=== PATIENT | male | born 1965 | race Caucasian/White ===

== ENCOUNTER 2016-05-16 07:58 | Emergency (ER) | payer OTHER ==
[~2016-05-16] VITALS: Ht 182.9 cm; Wt 74.1 kg
[2016-05-16 08:38] LABS: EOSINOPHIL (%) 0.1 % (0-5); HEMATOCRIT 44.7 % (38.0-50.0); IMMATURE GRANULOCYTE (%) 0.2 % (0.0-0.7); IMMATURE GRANULOCYTE COUNT 0.2 K/uL; MCH 31.4 PG (29.0-34.0); MCHC 35.1 G/DL (30.0-36.0); MCV 89.4 FL (86-99); MEAN PLAT.VOLUME 10.3 uM^3 (9.0-12.4); MONOCYTE (%) 5.1 % (3-12); MONOCYTE COUNT 0.5 K/uL (0-0.8); NEUTROPHIL (%) 84.6 % (45-76); NEUTROPHIL COUNT 8.6 K/uL (1.8-6.4); PLATELET COUNT 191 K/uL (156-360); RBC DIS.WIDTH-CV 13.1 % (11.8-14.6); RBC DIS.WIDTH-SD 42.3 % (39-53); WHITE BLOOD COUNT 10.1 K/uL (4.1-10.2)
[2016-05-16 08:46] LABS: ADD MIUA? YES; BILIRUBIN NEGATIVE; BLOOD SMALL; COLOR YELLOW ((YELLOW)); GLUCOSE (STRIP) 500; KETONES NEGATIVE; LEUKOCYTES NEGATIVE; NITRITE NEGATIVE; PH, URINE 5.5 (5-8); PROTEIN (STRIP) NEGATIVE; SPECIFIC GRAVITY 1.021 (1.000-1.030); UROBILINOGEN 0.2 MG/DL (0.2-1.0)
[2016-05-16 09:05] LABS: BACTERIA NONE SEEN; CASTS NONE SEEN /LPF; CRYSTALS NONE SEEN; EPITHELIAL CELLS NONE SEEN; MUCUS 2+; RED BLOOD CELLS 0-5 /HPF (0-5); WHITE BLOOD CELLS RARE /HPF (0-5)
[2016-05-16 09:06] LABS: ANION GAP 11 MEQ/L (2-14); CHLORIDE 101 MEQ/L (99-109); POTASSIUM 4.2 MEQ/L (3.7-5.4); SAMPLE HEMOLYSIS CHECK 0; SAMPLE ICTERIC CHECK 0; SAMPLE LIPEMIA CHECK 0; SODIUM 138 MEQ/L (136-147)
[2016-05-16 09:11] LABS: GFR ESTIMATE (CALCULATED) > 59 mL/min/; GLUCOSE 118 mg/dL (70-99); UREA NITROGEN (BUN) 15 mg/dL (9-23)
[2016-05-16 11:41] VITALS: BP 143/72
== END 2016-05-16 11:40 | disposition home or self-care (01) ==
LOC: EME 07:58
PROVIDERS: Emergency Medicine
PROC: 0T9B70Z Drainage of Bladder with Drainage Device, Via Natural or Artificial Opening (ICD-10-PCS; principal; 2016-05-16)
DX: R33.9 Retention of urine, unspecified (principal)
CPT/HCPCS: 80048; 81003; 85025; 99281; 99285

== ENCOUNTER 2016-05-21 21:47 | Emergency (ER) | payer OTHER ==
[~2016-05-21] VITALS: Ht 182.9 cm; Wt 72.0 kg
[2016-05-21 22:55] LABS: HEMATOCRIT 42.5 % (38.0-50.0); MCH 31.2 PG (29.0-34.0); MCHC 34.1 G/DL (30.0-36.0); MCV 91.4 FL (86-99); MEAN PLAT.VOLUME 10.6 uM^3 (9.0-12.4); PLATELET COUNT 164 K/uL (156-360); RBC DIS.WIDTH-CV 13.3 % (11.8-14.6); RBC DIS.WIDTH-SD 43.3 % (39-53); RED BLOOD COUNT 4.65 M/uL (4.00-5.50); WHITE BLOOD COUNT 11.9 K/uL (4.1-10.2)
[2016-05-21 23:05] LABS: CHLORIDE 103 mEq/L (99-109); POTASSIUM 3.5 mEq/L (3.7-5.4); SODIUM 140 mEq/L (136-147)
[2016-05-21 23:07] LABS: GLUCOSE 123 mg/dL (70-99)
[2016-05-21 23:09] LABS: ANION GAP 12 MEQ/L (2-14); TOTAL BILIRUBIN 1.1 mg/dL (0.0-1.0)
[2016-05-21 23:11] LABS: ALKALINE PHOSPHATASE 47 IU/L (3-129); GFR ESTIMATE (CALCULATED) > 59 mL/min/
[2016-05-21 23:12] LABS: UREA NITROGEN (BUN) 11 mg/dL (9-23)
[2016-05-21 23:14] LABS: LIPASE 19 U/L (1.0-51.0)
[2016-05-21 23:16] LABS: ADD MIUA? YES; BILIRUBIN NEGATIVE; BLOOD SMALL; COLOR YELLOW ((YELLOW)); GLUCOSE (STRIP) >=1000; KETONES NEGATIVE; LEUKOCYTES SMALL; NITRITE POSITIVE; PROTEIN (STRIP) NEGATIVE; SPECIFIC GRAVITY 1.026 (1.000-1.030)
[2016-05-21 23:34] LABS: INFLUENZA A VIRAL ANTIGEN POSITIVE; INFLUENZA B VIRAL ANTIGEN NEGATIVE
[2016-05-21] MEDS ORDERED: TAMIFLU75 MG PO (23:45)
[2016-05-21] MEDS ORDERED: CIPRO500 MG PO (23:45)
[2016-05-21 23:46] LABS: CASTS NONE SEEN /LPF; EPITHELIAL CELLS RARE; MUCUS 2+
[2016-05-21 23:47] LABS: BACTERIA 4+; CRYSTALS NONE SEEN; RED BLOOD CELLS RARE /HPF (0-5); UCUL ADDED? YES; WHITE BLOOD CELLS TNTC /HPF (0-5)
[2016-05-22 00:39] VITALS: BP 115/63
== END 2016-05-22 00:39 | disposition home or self-care (01) ==
LOC: EME 21:47
PROVIDERS: Emergency Medicine
PROC: 0T9B70Z Drainage of Bladder with Drainage Device, Via Natural or Artificial Opening (ICD-10-PCS; principal; 2016-05-22)
DX: N30.91 Cystitis, unspecified with hematuria (principal); J10.1 Influenza due to other identified influenza virus with other respiratory manifestations; R33.9 Retention of urine, unspecified
CPT/HCPCS: 74176; 80053; 81003; 83605; 83690; 85027; 87040; 87077; 87086; 87186; 87502; 87801; 99281; 99285